=== PATIENT | female | born 1970 | race Caucasian/White ===

== ENCOUNTER 2017-06-07 10:51 | Emergency (ER) | payer OTHER ==
[2017-06-07 11:53] VITALS: BP 129/86
--- NOTE | 2017-06-07 12:17 | UC ---
Complaint Female HPI - HPI Summary HPI Summary: This is an otherwise healthy 46 yo female with 5d h/o dysuria who developed back pain and chills for the last few days. Denies vaginal discharge. No abd pain. No n/v/d. No hematuria. No h/o similar symptoms. Her back pain is minimal. She used pyridium for 2d last week. - History Of Current Complaint Chief Complaint: [facility]CGU Stated Complaint: URINARY COMPLAINT/BACK PAIN Hx Last Menstrual Period: 3 weeks - Allergies/Home Medications Allergies/Adverse Reactions: Allergies Allergy/AdvReac Type Severity Reaction Status Date / Time No Known Allergies Allergy Verified 06/07/17 11:53 Home Medications: Home Medications Ibuprofen TAB* [Advil TAB*] 400 mg PO Q6H PRN 06/07/17 [History Confirmed ] Uri-Calm 1 dose PO SEE INSTRUCTIONS PRN 06/07/17 [History Confirmed 06/07/17] PMH/Surg Hx/FS Hx/Imm Hx Previously Healthy: Yes - Surgical History Surgical History: Yes Surgery Procedure, Year, and Place: appy at age 8 yrs; LETZ cervical procedure 2006 - Family History Known Family History: Positive: None - Social History Alcohol Use: Occasionally Substance Use Type: None Smoking Status (MU): Never Smoked Tobacco Review of Systems Constitutional: Chills Skin: Negative Eyes: Negative ENT: Negative Respiratory: Negative Cardiovascular: Negative Gastrointestinal: Negative Genitourinary: Dysuria Motor: Negative Neurovascular: Negative Musculoskeletal: Negative Neurological: Negative Psychological: Negative All Other Systems Reviewed And Are Negative: Yes Physical Exam Triage Information Reviewed: Yes Appearance: Well-Appearing Vital Signs: Initial Vital Signs Temp 99.3 F 06/07/17 11:36 Pulse 106 06/07/17 11:36 Resp 24 06/07/17 11:36 BP 129/86 06/07/17 11:36 Vital Signs Reviewed: Yes Respiratory: Positive: Chest non-tender, Lungs clear, Normal breath sounds Cardiovascular: Positive: RRR, No Murmur Abdomen Description: Positive: Nontender, Soft, CVA Tenderness (R), CVA Tenderness (L) Diagnostics - Laboratory Diagnostic Studies Completed/Ordered: UA - +nitrites, +blood, +leuks Complaint Female Dx - Course Course Of Treatment: This is an otherwise healthy 46 yo female with a several day h/o dysuria, back pain and chills. UA is suggestive of infection with positive CVA tenderness. - Differential Dx/Diagnosis Differential Diagnosis/HQI/PQRI: Pelvic Inflammatory Disease, Sexually Transmitted Disease, Urinary Tract Infection Provider Diagnoses: 1. UTI, possible pyelonephritis - tx with 7d of Bactrim DS with instructions to be seen in the ER with worsening fever, chills, n/v Discharge - Discharge Plan Condition: Stable Disposition: HOME Prescriptions: Sulfamethox/Trimethoprim DS* [Bactrim DS 800/160 TAB*] 1 tab PO BID #14 tab Patient Education Materials: Urinary Tract Infection in Women (ED) Additional Instructions: Activity: As tolerated Instructions: 1. Take antibiotics as directed
== END 2017-06-07 12:14 | disposition home or self-care (01) ==
LOC: UCCORT 10:51
DX: N39.0 Urinary tract infection, site not specified (principal)
CPT/HCPCS: 81003; 87077; 87086; 87186; 99202; G0463